=== PATIENT | male | born 1970 | race Caucasian/White ===

== ENCOUNTER 2018-11-07 09:33 | Emergency (ER) | payer SELFPAY ==
[~2018-11-07] VITALS: Ht 170.2 cm; Wt 64.0 kg
[2018-11-07 09:38] VITALS: Ht 170.2 cm; Wt 64.0 kg
[2018-11-07 11:54] VITALS: BP 120/74
== END 2018-11-07 11:54 | disposition home or self-care (01) ==
LOC: ED 09:33
DX: M79.672 Pain in left foot (principal); M79.652 Pain in left thigh
CPT/HCPCS: J1885; Q0092